=== PATIENT | female | born 1965 | race Caucasian/White ===

== ENCOUNTER → 2021-12-11 08:43 | Outpatient (CLI) | payer BC, SELFPAY ==
--- NOTE | 2021-12-11 08:49 | BI_ITS ---
MAMMOGRAPHY - BILATERAL SCREENING REASON FOR EXAM: Female, 56 years old. Routine annual screening examination. PERTINENT HISTORY: Non-contributory. Remote right excisional breast biopsy. TECHNIQUE: Digital bilateral breast carolina (3D mammographic acquisition) in the CC and MLO projections. 2-D mediolateral oblique (MLO) and craniocaudad (CC) views of both breasts were obtained. CAD: Full Field Digital Mammography with Computer Added Detection was performed. COMPARISON: Comparison is made with prior outside examination dated 04/25/2015. FINDINGS: Breast Composition: The breasts are heterogeneously dense, which may obscure small masses. There are no dominant masses or suspicious calcifications. Stable 1 cm x 0.8 cm well-defined nodule in the central slightly lateral aspect of the left breast. Correlation with ultrasound is recommended. Stable benign-appearing bilateral axillary lymph nodes. No other significant abnormalities are identified. There has been no significant change since the prior study. BI/SCRN MAMM (CAD)W/CAROLINA BILAT IMPRESSION: Stable bilateral screening mammogram. Ultrasonic correlation with the nodular density seen in the central slightly lateral aspect of the left breast. Lateral aspect of the ASSESSMENT CATEGORY: BIRADS Category 0: Incomplete. Need additional imaging evaluation. A letter regarding these results will be sent to the patient by the facility within 30 days. Approximately 10% of breast cancers are not detected by mammography. A normal mammogram should not delay biopsy of a clinically suspicious abnormality. [id number] Electronically Signed: Handy Hou MD at 9:32 EST ,
== END ==
PROVIDERS: PCP Family Medicine; Visit Provider Obstetrics & Gynecology
DX: Z12.31 Encounter for screening mammogram for malignant neoplasm of breast (principal)
CPT/HCPCS: 77063; 77067

== ENCOUNTER → 2021-12-12 10:47 | Outpatient (CLI) | payer BC, SELFPAY ==
--- NOTE | 2021-12-12 10:51 | US_ITS ---
STUDY: ULTRASOUND BREAST - LEFT REASON FOR EXAM: Female, 56 years old. Abnormal screening mammogram. TECHNIQUE: Axial and longitudinal images of the LEFT breast were performed with a high resolution ultrasound transducer. # OF IMAGES: 28 COMPARISON: Comparison is made with prior mammogram dated 12/11/2021. FINDINGS: LEFT Breast: The mammographic abnormality corresponds to a 1.1 cm x 0.9 cm slightly lobulated hypoechoic solid/cystic nodule at the 6 o''clock position of the breast at 5 cm from the nipple. A biopsy is recommended for further evaluation. US/Breast Limited Unilateral IMPRESSION: The mammographic abnormality corresponds to 1.1 cm x 0.9 cm slightly lobulated hypoechoic solid/cystic nodule. Biopsy recommended. ASSESSMENT CATEGORY: BIRADS Category 4: Suspicious - Biopsy Should Be Considered. A letter regarding these results will be sent to the patient by the facility within 30 days. Electronically Signed: Handy Hou MD at 13:49 EST ,
== END ==
PROVIDERS: PCP Family Medicine; Visit Provider Obstetrics & Gynecology
DX: R92.2 Inconclusive mammogram (principal)
CPT/HCPCS: 76642

== ENCOUNTER 2021-12-18 11:22 | Outpatient (CLI) | payer BC, SELFPAY ==
--- NOTE | 2021-12-18 | BRBX_PTH ---
PATIENT: ERWIN LIN LOC: [facility] U#:[id number] AGE/SX: 56/F ROOM: RE12/18/[address]: Dr. Lelia Flores MD : 1965 BED: DIS: 12/18/2021 SPEC #: [id number] RECD: 12/18/21 12:52 STATUS: KIM ISAI #: [id number] NAM: 12/18/21 00:[address]: Lelia Flores DEPT: SURGICAL PATHOLOGY RECD BY: Kareem Cruz ENTERED: 12/18/21 12:53 SP TYPE: BREAST BX OTHR DR: London Torres DO Tissues: Left breast, NOS Procedures: Surgery Specimen Level IV HEADER OPERATION: Left breast biopsy PRE-OP DIAGNOSIS: Left breast mass TISSUE SUBMITTED: Left breast tissue 6 o?clock, 5 cm from nipple MICROSCOPIC DIAGNOSIS Left breast at 6 o?clock, biopsy: Adenosis and focal duct ectasia. No evidence of malignancy. See comment. AM:jacob 12/19/2021 COMMENT Immunohistochemistry ([id number]) supports the above diagnosis. MICROSCOPIC DESCRIPTION Slides are reviewed. GROSS DESCRIPTION Received in fixative is one container labeled with the patient's name and designated left breast. The specimen consists of multiple irregular and elongated fragments of smith tissue that in aggregate measure 1 x 0.5 x <0.1 cm. The specimen is totally submitted in one cassette. / AM:jacob 12/18/2021 TC:5 CPT: 06252
--- NOTE | 2021-12-18 | IMM_PTH ---
PATIENT: ERWIN LIN LOC: [facility] U#:[id number] AGE/SX: 56/F ROOM: RE12/18/[address]: Dr. Lelia Flores MD : 1965 BED: DIS: 12/18/2021 SPEC #: [id number] RECD: 12/19/21 12:18 STATUS: KIM REQ #: [id number] NAM: 12/18/21 00:[address]: Lelia Flores DEPT: IMMUNOHISTOCHEMISTRY RECD BY: Liliana Govea ENTERED: 12/19/21 12:19 SP TYPE: IMMUNO OTHR DR: London Torres DO Tissues: Left breast, NOS Procedures: CK8 (initial) SMA (add) CALPONIN-1 (add) P40 (add) PHYSICIAN & INSTITUTION [facility] [id number] SPECIMEN INFORMATION: Tissue Source: Left breast Clinical Info: Left breast mass Specimen Number: [id number] CPT code: 10872, 82344 x3 METHODOLOGY: Deparaffinized sections of prefer/formalin-fixed tissue or PAP/DQ stained slides are incubated with monoclonal/polyclonal antibodies/oligonucleotide probes. Localization is made via biotin free immunoperoxidase method. Appropriate controls are performed and reacted as expected. Results on target cell population are indicated in the following table: RESULTS: ANTIBODY / CLONE RESULT CK8 ([id number]) positive P40 (BC28) positive Calponin-1 (XI638Q) positive Actin (1A4) positive These tests were developed and their performance characteristics determined by [facility]. They may not have been cleared or approved by the U.S. Food and Drug Administration. The FDA has determined that such clearance or approval is not necessary. The above immunohistochemical/dualISH markers are ordered and reviewed by the Pathologist. INTERPRETATION: Left breast at 6 o?clock, biopsy: Adenosis. AM:jacob 12/22/2021
== END 2021-12-18 23:59 | disposition home or self-care (01) ==
LOC: LABSPEC 11:23
PROVIDERS: PCP Family Medicine; Visit Provider Surgery
DX: N63.20 Unspecified lump in the left breast, unspecified quadrant (principal)
CPT/HCPCS: 88305; 88341; 88342

== ENCOUNTER → 2022-06-25 | Outpatient (CLI) | payer BC, SELFPAY ==
--- NOTE | 2022-06-25 07:49 | US_ITS ---
STUDY: ULTRASOUND BREAST - LEFT REASON FOR EXAM: Female, 57 years old. Breast mass TECHNIQUE: Axial and longitudinal images of the LEFT breast were performed with a high resolution ultrasound transducer. # OF IMAGES: 57 COMPARISON: 12/12/2021 FINDINGS: LEFT Breast: Heterogeneous background echotexture. At 5 o''clock, 4 cm from the nipple, demonstrates no change in the 7 mm oval parallel circumscribed hypoechoic mass which has been biopsied.: US/Breast Limited Unilateral IMPRESSION: No change in the 7 mm hypoechoic mass which has been biopsied. ASSESSMENT CATEGORY: BIRADS Category 2: Benign. A letter regarding these results will be sent to the patient by the facility within 30 days. Electronically Signed: Rohan Garcia MD at 9:28 EDT ,
== END | disposition home or self-care (01) ==
LOC: OPUS 07:48
PROVIDERS: PCP Family Medicine; Visit Provider Surgery
DX: N63.20 Unspecified lump in the left breast, unspecified quadrant (principal)
CPT/HCPCS: 76642

== ENCOUNTER → 2025-01-12 | Outpatient (CLI) | payer BC, SELFPAY ==
--- NOTE | 2025-01-12 14:00 | BI_ITS ---
EXAM: SCRN MAMM (CAD)W/CAROLINA BILAT DATE: 01/12/2025 CLINICAL HISTORY: F, Age 59 y/o , SCREENING BREAST CANCER RISK ASSESSMENT: Has not been calculated. TECHNIQUE: Bilateral screening digital breast tomosynthesis with 2D and 3D images. Computer aided detection. COMPARISON: Prior exam(s) dated 12/11/2021. FINDINGS: TISSUE DENSITY: The breast tissue is heterogenously dense, which may obscure small masses. Bilateral Breast Mammographic Findings: There are no suspicious masses, suspicious cluster of microcalcifications, architectural distortion or secondary signs of malignancy identified in either breast. Well-circumscribed stable isodense masses are seen in both breast. Benign-appearing round microcalcifications are seen in both breast. BI/SCRN MAMM (CAD)W/CAROLINA BILAT IMPRESSION: Right Breast: BIRADS 2 BENIGN FINDING. Left Breast: BIRADS 2 BENIGN FINDING. OVERALL FINAL ASSESSMENT: BIRADS 2 BENIGN FINDING RECOMMENDATION: Routine annual follow-up in 1 Year A letter with findings and recommendations will be mailed to the patient. Reading Location: [id number]
== END | disposition home or self-care (01) ==
LOC: OPBI 13:58
PROVIDERS: PCP Family Medicine; Referring Provider Family Medicine; Visit Provider Family Medicine
DX: Z12.31 Encounter for screening mammogram for malignant neoplasm of breast (principal)
CPT/HCPCS: 77063; 77067